=== PATIENT | male | born 1960 | race Caucasian/White ===

== ENCOUNTER 2020-12-12 10:06 | Outpatient (CLI) | payer BC, SELFPAY | END 2020-12-12 10:07 | disposition home or self-care (01) | PROVIDERS: PCP Internal Medicine; Visit Provider Internal Medicine | DX: J02.9 Acute pharyngitis, unspecified (principal) | CPT/HCPCS: 87070; 87081; 87880 ==

== ENCOUNTER → 2020-12-13 04:06 | Outpatient (CLI) | payer BC, SELFPAY ==
[2020-12-13 20:12] LABS: SARS-CoV-2 RNA PCR Negative
== END ==
PROVIDERS: PCP Internal Medicine; Visit Provider Internal Medicine
DX: J02.9 Acute pharyngitis, unspecified (principal); Z20.822 Contact with and (suspected) exposure to COVID-19
CPT/HCPCS: C9803; U0003; U0005

== ENCOUNTER → 2021-06-18 02:17 | Outpatient (CLI) | payer BC, SELFPAY ==
[2021-06-18 12:36] LABS: SARS-CoV-2 RNA PCR Negative
== END ==
PROVIDERS: PCP Internal Medicine; Visit Provider Physician Assistant
DX: R68.89 Other general symptoms and signs (principal); Z20.822 Contact with and (suspected) exposure to COVID-19
CPT/HCPCS: C9803; U0003; U0005

== ENCOUNTER 2021-07-31 01:51 | Day surgery (SDC) | payer BC, SELFPAY ==
[2021-07-21 13:31] VITALS: BMI 26.8
[2021-07-31 11:18] VITALS: BP 102/74; PULSE 63; RESP 16; TEMP 36.6; O2SAT 99
--- NOTE | 2021-07-31 11:18 | PM.HPGS ---
History of Present Illness History of Present Illness Consent: Risks, benefits, and alternatives have been discussed and questions answered. Patient agrees to proceed with procedure. Chief complaint: neoplasm screening Narrative: Peter Wan is a 60 year old male Here for colon cancer screening. He has had polyps removed in the past, most recently 5 years ago. He is due to have heart surgery with valve replacement in a month or 2. Review of Systems Review of Systems: All systems reviewed & are unremarkable except as noted in HPI and below PMFSH Past Medical History Medical History Disorder of tear duct system Hemorrhoid Surgical History Surgical History S/P correction of deviated nasal septum Family History Family History Sibling Patient's sister is in good health Patient's brother is in good health Father Patient's father is Malignant neoplasm of prostate Social History Social History Smoking status: Never smoker Alcohol intake: current Drinks per week: 4 Substance use type: does not use Living arrangements: with family Spiritual care concerns: No Meds Home Medications and Allergies Home Medications Medication Instructions Recorded Confirmed Type aspirin 81 mg tablet,delayed 81 mg PO DAILY 09/04/19 07/21/21 History release coenzyme Q10 200 mg capsule 200 mg PO DAILY 09/04/19 07/21/21 History milk thistle seed extract 140 mg 140 mg PO BID 09/04/19 07/21/21 History capsule multivitamin 1 tablet PO DAILY 09/04/19 07/21/21 History ascorbic acid (vitamin C) 500 mg 500 mg PO .2-3xw tablet 09/05/19 07/21/21 History tablet cholecalciferol (vitamin D3) 25 25 mcg PO DAILY 07/17/20 07/21/21 History mcg (1,000 unit) capsule codeine 10 mg-guaifenesin 100 mg/5 10 ml PO QHS PRN #70 ml 07/18/21 07/21/21 Rx mL oral liquid amoxicillin 875 mg-potassium 1 tablet PO BID #20 tablet 07/21/21 07/21/21 Rx clavulanate 125 mg tablet Allergies Allergy/AdvReac Type Severity Reaction Status Date / Time No Known Allergies Allergy Verified 07/31/21 11:17 Exam Resp: Auscultation: clear to auscultation bilaterally Cardio: Rate: regular rate Rhythm: regular rhythm GI: GI Palp: Yes Soft to palpation and No Tenderness to palpation present (GI) Assessment and Plan Assessment and plan (1) Colon cancer screening: Code(s): Z12.11 - Encounter for screening for malignant neoplasm of colon Status: Acute Assessment and Plan: EGD with possible biopsy or dilatation or cautery.
[2021-07-31] MEDS: LACTATED RINGERS 1,000 ML 150 ML IV CONT (11:33)
[2021-07-31] MEDS: GENTAMICIN 80MG/SOD CHL 50 ML 80 MG/50 ML BAG 100 MG IVPB (11:34)
--- NOTE | 2021-07-31 12:29 | P.PNAN_ITS ---
Anes - Initial Pre Proc Eval Procedure: Operation Date: 07/31/21 12:30 Proposed Procedures p Screening Colonoscopy - George Webber MD Date/Time: 07/31/21 12:29 Surgeon: George Webber MD Pre Op Diagnosis: neoplasm screening Patient Data Age: 60 Gender: M Height: 1.73 m Weight: 80.2 kg Last Vital Signs Temp 97.8 F 07/31/21 11:18 Pulse 63 07/31/21 11:18 Resp 16 07/31/21 11:18 BP 102/74 07/31/21 11:18 Pulse Ox 99 07/31/21 11:18 Allergies Allergy/AdvReac Type Severity Reaction Status Date / Time No Known Allergies Allergy Verified 07/31/21 11:17 Home Medications Medication Instructions Recorded Confirmed Type aspirin 81 mg tablet,delayed 81 mg PO DAILY 09/04/19 07/21/21 History release coenzyme Q10 200 mg capsule 200 mg PO DAILY 09/04/19 07/21/21 History milk thistle seed extract 140 mg 140 mg PO BID 09/04/19 07/21/21 History capsule multivitamin 1 tablet PO DAILY 09/04/19 07/21/21 History ascorbic acid (vitamin C) 500 mg 500 mg PO .2-3xw tablet 09/05/19 07/21/21 H istory tablet cholecalciferol (vitamin D3) 25 25 mcg PO DAILY 07/17/20 07/21/21 History mcg (1,000 unit) capsule codeine 10 mg-guaifenesin 100 mg/5 10 ml PO QHS PRN #70 ml 07/18/21 07/21/21 Rx mL oral liquid amoxicillin 875 mg-potassium 1 tablet PO BID #20 tablet 07/21/21 07/21/21 Rx clavulanate 125 mg tablet Patient hx anesthesia problems: none Family hx anesthesia problems: none Results Review: All pre-operative results and documents have been reviewed as part of the pre-operative evaluation. FORMERLY [facility], [facility]1983 Past Medical History Medical History Disorder of tear duct system Hemorrhoid Surgical History Surgical History S/P correction of deviated nasal septum Family History Family History Sibling Patient's sister is in good health Patient's brother is in good health Father Patient's father is Malignant neoplasm of prostate Social History Social History Smoking status: Never smoker Alcohol intake: current Drinks per week: 4 Substance use type: does not use Living arrangements: with family Spiritual care concerns: No Anes - Eval Final PreProcedure Day of Procedure 07/31/21 12:29 Patient weight: normal Heart: regular rate and rhythm and murmur Lungs: clear to auscultation Airway: Mallampati scale class III Neurological: alert and oriented Last oral intake: >/= 8 hours ASA classification: III Emergent: no Anesthetic plan: proceed Anesthesia type and monitoring: general and standard monitoring Results Review: All pre-operative results and documents have been reviewed as part of the pre-operative evaluation. Informed Consent: The patient's anesthetic plan and its attendant risks and benefits were discussed with the patient/family/POA. Questions were solicited and answers provided to the satisfaction of the patient/family/POA.
[2021-07-31 12:51] VITALS: BP 150/103; PULSE 53; RESP 17; O2SAT 97
[2021-07-31 13:01] VITALS: BP 102/68; PULSE 53; RESP 21; O2SAT 100
[2021-07-31 13:11] VITALS: BP 111/73; PULSE 58; RESP 21; O2SAT 100
== END 2021-07-31 13:24 | disposition home or self-care (01) ==
PROVIDERS: PCP Internal Medicine; Visit Provider Internal Medicine Gastroenterology
PROC: 0DJD8ZZ Inspection of Lower Intestinal Tract, Via Natural or Artificial Opening Endoscopic (ICD-10-PCS; CPT 45378; principal; 2021-07-31 12:30)
DX: Z12.11 Encounter for screening for malignant neoplasm of colon (principal); Z86.010 Personal history of colon polyps
CPT/HCPCS: 45378; J1580; J2704; J7120

== ENCOUNTER 2021-11-25 10:39 | Outpatient (CLI) | payer BC, SELFPAY ==
[2021-11-25 11:20] LABS: INR 1.2; Prothrombin Time 14.4 Seconds (11.1-14.7)
== END 2021-11-25 10:40 | disposition home or self-care (01) ==
PROVIDERS: PCP Internal Medicine; Visit Provider Internal Medicine
DX: Z79.01 Long term (current) use of anticoagulants (principal)
CPT/HCPCS: 36415; 85610

== ENCOUNTER 2021-12-11 13:00 | Emergency (ER) | payer BC, SELFPAY ==
[2021-12-11 13:24] VITALS: BP 115/64; PULSE 63; RESP 18; TEMP 36.4; O2SAT 100
--- NOTE | 2021-12-11 17:23 | ED.ALLEREA ---
HPI - Allergic Reaction General Chief complaint: Allergic Reaction Stated complaint: wasp sting 2 days ago Time Seen by Provider: 12/11/21 16:47 Source: patient Mode of arrival: ambulatory Limitations: no limitations History of Present Illness HPI narrative: This is a 61 year old male that presents to the ER for insect stings that occurred 2 days ago. Reports itching and swelling to the areas. Reports stings to his ankles and left hand. Denies fevers. Related Data Home Medications Medication Instructions Recorded Confirmed aspirin 81 mg tablet,delayed 81 mg PO DAILY 09/04/19 12/10/21 release (Adult Low Dose Aspirin) coenzyme Q10 200 mg capsule (Co 200 mg PO DAILY 09/04/19 12/10/21 Q-10) milk thistle seed extract 140 mg 140 mg PO BID 09/04/19 12/10/21 capsule multivitamin (Multiple Vitamins 1 tablet PO DAILY 09/04/19 12/10/21 tablet) ascorbic acid (vitamin C) 500 mg 500 mg PO .2-3xw 09/05/19 12/10/21 tablet cholecalciferol (vitamin D3) 25 25 mcg PO DAILY 07/17/20 12/10/21 mcg (1,000 unit) capsule biotin 10,000 mcg capsule mcg PO 08/11/21 12/10/21 tudca BYMOUTH DAILY 08/11/21 12/10/21 apixaban 5 mg tablet (Eliquis) 5 mg PO BID 12/10/21 12/10/21 Allergies Allergy/AdvReac Type Severity Reaction Status Date / Time No Known Allergies Allergy Verified 12/10/21 14:29 Review of Systems Review of Systems: CONSTITUTIONAL: Denies fever SKIN: Reports rash and itching. All systems reviewed & are unremarkable except as noted in HPI and below PMFSH Past Medical History Medical History (Updated 12/11/21 @ 17:33 by Haydee Dickson PA-C) Disorder of tear duct system Hemorrhoid History of transcatheter aortic valve replacement (TAVR) Surgical History Surgical History S/P correction of deviated nasal septum Family History Family History Sibling Patient's sister is in good health Patient's brother is in good health Father Patient's father is Malignant neoplasm of prostate Social History Social History Smoking status: Never smoker Alcohol intake: current Drinks per week: 4 Substance use type: does not use Spiritual care concerns: No Exam Narrative: GENERAL: Well-appearing, well-nourished, and in no acute distress. HEAD: Normocephalic, atraumatic. EYES: EOMI. EXTREMITIES: Normal range of motion. Mild edema with overlying redness to the left hand and bilateral ankles. No lymphangitic streaking SKIN: Warm, dry, no rash. NEURO: No focal deficits. Alert and oriented x3. PSYCH: Normal mood and affect Course Vital Signs Vital signs: Vital Signs Temperature 97.6 F 12/11/21 13:24 Pulse Rate 63 12/11/21 13:24 Respiratory Rate 18 12/11/21 13:24 Blood Pressure 115/64 12/11/21 13:24 Pulse Oximetry 100 12/11/21 13:24 Oxygen Delivery Room Air 12/11/21 13:24 Temperature 97.6 F 12/11/21 13:24 Pulse Rate 63 12/11/21 13:24 Respiratory Rate 18 12/11/21 13:24 Blood Pressure 115/64 12/11/21 13:24 Pulse Oximetry 100 12/11/21 13:24 Oxygen Delivery Room Air 12/11/21 13:24 MDM - Allergic Reaction MDM Narrative Medical decision making narrative: Patient presents to the emergency department for itching. Reports he had insect stings a couple of days prior. He has been taking Benadryl with little relief. No concerning findings on exam. Patient is afebrile and nontoxic-appearing. Instructed on use of antihistamines and will be put on steroid taper. He is to follow-up with his primary care doctor. He was given warnings to return to the Critical Care Time Critical Care Time Critical Care Time: No Discharge Plan Discharge Clinical Impression: Insect bite or sting Patient Disposition: Home, Self-Care Condition: Stable Instructions: Insect Bite or Sting (ED
[2021-12-11] MEDS: FAMOTIDINE 20 MG TABLET PO (17:44)
[2021-12-11] MEDS: LORATADINE 10 MG TABLET PO (17:44)
[2021-12-11 18:05] VITALS: BP 130/83; PULSE 97; RESP 18; O2SAT 99
== END 2021-12-11 18:07 | disposition home or self-care (01) ==
LOC: ANHED 17:40
PROVIDERS: Emergency Provider Family Medicine; PCP Internal Medicine
DX: T63.461A Toxic effect of venom of wasps, accidental (unintentional), initial encounter (principal); Z79.82 Long term (current) use of aspirin; Z79.01 Long term (current) use of anticoagulants; Z95.2 Presence of prosthetic heart valve
CPT/HCPCS: 99283; A9270

== ENCOUNTER 2022-01-27 11:06 | Outpatient (CLI) | payer BC, SELFPAY ==
[2022-01-27 12:05] LABS: Influenza Control Positive
== END 2022-01-27 11:07 | disposition home or self-care (01) ==
LOC: ANHLAB 11:08
PROVIDERS: PCP Internal Medicine; Visit Provider Internal Medicine
DX: B34.9 Viral infection, unspecified (principal)
CPT/HCPCS: 87804

== ENCOUNTER 2022-03-11 14:42 | Outpatient (CLI) | payer BC, SELFPAY ==
[2022-03-11 15:11] LABS: Basophils Percent Auto 0.4 % (0.2-1.2); Eosinophils Percent Auto 0.7 % (0-4.4); Hematocrit 41.9 % (42.0-52.0); Hemoglobin 14.4 g/dL (14.0-18.0); Immature Granulocyte Absolute 0.02 K/mm3 (0.00-0.031); Immature Granulocyte Percent A 0.4 % (0-0.5); Lymphocytes Absolute Auto 1.12 K/mm3 (0.9-3.2); Lymphocytes Percent Auto 24.6 % (18.3-44.2); Mean Corpuscular HGB Conc 34.4 g/dl (32-36); Mean Corpuscular Hemoglobin 33.6 pg (26-34); Mean Corpuscular Volume 97.9 fl (80-100); Mean Platelet Volume 9.4 fl (7.4-10.4); Monocytes Absolute Auto 0.4 K/mm3 (0.1-0.6); Monocytes Percent Auto 8.8 % (2.6-8.5); Neutrophils Percent Auto 65.1 % (45.5-73.1); Platelet Count Result 127 k/mm3 (150-375); Red Blood Count 4.28 M/mm3 (4.6-6.20); Red Cell Distribution Width 14.2 % (11.5-14.5); White Blood Count 4.6 K/mm3 (4.5-10.0)
[2022-03-11 16:41] LABS: Iron 93 ug/dL (49-181)
[2022-03-11 16:47] LABS: Alanine Aminotransferase 112 U/L (6-50); Albumin Level 4.4 g/dL (3.5-5.1); Alkaline Phosphatase 161 U/L (38-126); Anion Gap 8 mmol/L (8-16); Aspartate Amino Transferase 87 U/L (17-59); Blood Urea Nitrogen 18 mg/dL (9-20); Calcium 9.5 mg/dL (8.4-10.2); Carbon Dioxide 29 mmol/L (22-30); Chloride 101 mmol/L (98-107); Estimated Glomerular Filt Rate > 60; Glucose 100 mg/dL (65-110); Lactate Dehydrogenase 239 U/L (120-246); Potassium 4.8 mmol/L (3.4-5.0); Sodium 138 mmol/L (137-145)
[2022-03-11 16:58] LABS: Percent Iron Saturation 37 % (20-50)
[2022-03-11 18:03] LABS: Folic Acid 18.9 ng/mL (2.76->20); Vitamin B12 > 1000.0 pg/mL (239-931)
[2022-03-18 10:57] LABS: Reference Lab Test Result Negative
== END 2022-03-11 14:43 | disposition home or self-care (01) ==
LOC: ANHLAB 14:43
PROVIDERS: PCP Internal Medicine; Visit Provider Internal Medicine Hematology & Oncology
DX: D69.59 Other secondary thrombocytopenia (principal)
CPT/HCPCS: 36415; 80053; 82607; 82728; 82746; 83540; 83550; 83615; 85025; 86023

== ENCOUNTER 2022-03-14 17:35 | Emergency (ER) | payer BC, SELFPAY ==
[2022-03-14] VITALS (9 sets, daily range): BP systolic 115–140; BP diastolic 71–100; PULSE 64–74; RESP 13–20; TEMP 37.1; O2SAT 92–100
--- NOTE | ~2022-03-14 | CT_ITS ---
EXAMINATION: CTA chest PE abdomen pel DATE: 03/14/2022 18:52 INDICATION: eval for PE, abdominal pain TECHNIQUE: Computed tomography angiography (CTA) of the chest was performed with 100 mL Omnipaque-350 intravenous contrast timed to evaluate the pulmonary arteries, followed by portal venous phase imagi ng of the abdomen and pelvis. Coronal maximum intensity projection 3D-reconstructions were created by the technologist. The dose-length product (DLP) was 977.08 mGy-cm. Automated exposure control and it erative reconstruction technique were employed. COMPARISON: None. FINDINGS: CHEST: Lung parenchyma and airways: Calcified right upper lobe granuloma. Pleura: Unremarkable. Thoracic inlet, axillae and chest wall: Intact sternotomy wires. Left chest AICD. Thoracic aorta: Right-sided arch. Mild arch ectasia. Mediastinum: Dilated central pulmonary arteries, as can be seen with pulmonary arterial hypertension. Slightly patulous esophagus.. Heart and pericardium: Pulmonary valve replacement/stent. Coronary artery calcifications: Absent. Thoracic bones: No acute osseous finding. Pulmonary arteries: Study quality: Adequate. No pulmonary emboli detected. ABDOMEN/PELVIS: Liver: Normal. Biliary/Gallbladder: Cholelithiasis. No bile duct dilation. Pancreas: No mass or duct dilation. Spleen: Granulomatous calcifications. Adrenals:No mass. Kidneys: No mass, stone, or hydronephrosis. GI tract: No small or large bowel dilation. Normal appendix. Mesentery/Peritoneum: No ascites, mass, or free air. Retroperitoneum: No mass. Pelvis: Mild bladder wall thickening with mild adjacent inflammatory change. Mild prostatomegaly. Soft Tissues: Soft tissues and body wall unremarkable. Abdominopelvic bones: No acute osseous finding. IMPRESSION: No CT evidence of acute pulmonary embolus. Bladder wall thickening and inflammation which may be seco ndary to cystitis or outlet compromise. Otherwise no acute abdominopelvic process detected. Reviewed, dictated and finalized at location K. NESS PROGRAM ADMINISTRATOR IMPRESSION: No CT evidence of acute pulmonary embolus. Bladder wall thickening and inflamma tion which may be secondary to cystitis or outlet compromise. Otherwise no acut e abdominopelvic process detected.
--- NOTE | 2022-03-14 18:06 | ECG_ITS ---
Measurements Intervals [place] Rate: 72 P: -29 [place]: 135 QRS: -32 QRSD: 170 T: 76 QT: 445 QTc: 488 Interpretive Statements ELECTRONIC ATRIAL PACEMAKER WITH INHIBITION VENTRICULAR PREMATURE COMPLEX LEFT AXIS DEVIATION RIGHT BUNDLE BRANCH BLOCK BASELINE ARTIFACT- I, V4 ABNORMAL ECG NO PREVIOUS ECG AVAILABLE FOR COMPARISON Electronically Signed On 03-15-2022 7:07:57 FILEMAKER DEVELOPER by Tobi Olson D.O.
[2022-03-14 18:12] LABS: Basophils Percent Auto 0.5 % (0.2-1.2); Eosinophils Percent Auto 0.5 % (0-4.4); Hematocrit 41.8 % (42.0-52.0); Hemoglobin 14.5 g/dL (14.0-18.0); Immature Granulocyte Absolute 0.01 K/mm3 (0.00-0.031); Immature Granulocyte Percent A 0.2 % (0-0.5); Lymphocytes Absolute Auto 1.32 K/mm3 (0.9-3.2); Lymphocytes Percent Auto 30.9 % (18.3-44.2); Mean Corpuscular HGB Conc 34.7 g/dl (32-36); Mean Corpuscular Hemoglobin 32.8 pg (26-34); Mean Corpuscular Volume 94.6 fl (80-100); Mean Platelet Volume 9.3 fl (7.4-10.4); Monocytes Absolute Auto 0.5 K/mm3 (0.1-0.6); Monocytes Percent Auto 11.7 % (2.6-8.5); Neutrophils Absolute Auto 2.4 K/mm3 (1.3-6.7); Neutrophils Percent Auto 56.2 % (45.5-73.1); Platelet Count Result 119 k/mm3 (150-375); Red Blood Count 4.42 M/mm3 (4.6-6.20); Red Cell Distribution Width 13.9 % (11.5-14.5); White Blood Count 4.3 K/mm3 (4.5-10.0)
[2022-03-14 18:23] LABS: Alanine Aminotransferase 156 U/L (6-50); Albumin Level 4.4 g/dL (3.5-5.1); Alkaline Phosphatase 193 U/L (38-126); Anion Gap 10 mmol/L (8-16); Aspartate Amino Transferase 176 U/L (17-59); Bilirubin,Total 1.1 mg/dL (0.2-1.3); Blood Urea Nitrogen 11 mg/dL (9-20); Calcium 9.3 mg/dL (8.4-10.2); Carbon Dioxide 21 mmol/L (22-30); Chloride 105 mmol/L (98-107); Estimated CRCL calculation 92 ml/min; Estimated Glomerular Filt Rate > 60; Glucose 113 mg/dL (65-110); Partial Thromboplastin Time 26.3 SECONDS (22.3-36.8); Potassium 3.5 mmol/L (3.4-5.0); Prothrombin Time 12.7 Seconds (11.1-14.7); Sodium 136 mmol/L (137-145)
--- NOTE | 2022-03-14 18:25 | ED.ARRPALP ---
HPI - Arrhythmia/Palpitations General Chief Complaint: Arrhythmia/Palpitations Stated Complaint: low O2 Time Seen by Provider: 03/14/22 17:54 History of Present Illness HPI narrative: 61-year-old male presenting to the emergency department for evaluation of epigastric pain and a low pulse ox at home. Patient states he was just discharged from [facility] where he had been admitted to investigate some epigastric pain. Patient states he did have an endoscopy and an ultrasound which showed he had gallstones. After patient got home he states he had a low pulse ox and had a recurrence of his epigastric pain. Patient states he does feel improved at this point. Patient's pulse ox has been stable here. Prior to 1 month ago patient had a defibrillator placed due to an episode of V. tach that this was placed in [place]. Patient also had his valve replacement checked at mail last week. Related Data Home Medications Medication Instructions Recorded Confirmed aspirin 81 mg tablet,delayed 81 mg PO DAILY 09/04/19 02/07/22 release (Adult Low Dose Aspirin) coenzyme Q10 200 mg capsule (Co 200 mg PO DAILY 09/04/19 02/07/22 Q-10) milk thistle seed extract 140 mg 140 mg PO BID 09/04/19 02/07/22 capsule multivitamin (Multiple Vitamins 1 tablet PO DAILY 09/04/19 02/07/22 tablet) ascorbic acid (vitamin C) 500 mg 500 mg PO .2-3xw 09/05/19 02/07/22 tablet cholecalciferol (vitamin D3) 25 25 mcg PO DAILY 07/17/20 02/07/22 mcg (1,000 unit) capsule biotin 10,000 mcg capsule mcg PO 08/11/21 02/07/22 apixaban 5 mg tablet (Eliquis) 5 mg PO BID 12/10/21 02/07/22 magnesium 250 mg tablet 250 mg PO .every other day 02/04/22 02/07/22 Allergies Allergy/AdvReac Type Severity Reaction Status Date / Time No Known Allergies Allergy Verified 03/14/22 18:00 Review of Systems Review of Systems: CONSTITUTIONAL: Denies fever, chills, or sweats. EYES: Denies visual changes, redness, or discharge. ENT: Denies rhinorrhea, congestion, sore throat, or otalgia. CARDIOVASCULAR: Denies chest pain, palpitations, or edema. RESPIRATORY: Denies cough or dyspnea. GASTROINTESTINAL: Epigastric pain GENITOURINARY: Denies dysuria or hematuria. SKIN: Denies rash or itching. MUSCULOSKELETAL: Denies back pain, joint pain, or myalgia. NEUROLOGIC: Denies headache, numbness, or weakness. [facility] Past Medical History Medical History Disorder of tear duct system Hemorrhoid History of transcatheter aortic valve replacement (TAVR) Surgical History Surgical History S/P correction of deviated nasal septum Family History Family History Sibling Patient's sister is in good health Patient's brother is in good health Father Patient's father is Malignant neoplasm of prostate Social History Social History Smoking status: Never smoker Alcohol intake: current Drinks per week: 4 Substance use type: does not use Spiritual care concerns: No Exam Narrative: APPEARANCE: Well appearing, no pain, no distress, well-nourished. HEAD: normocephalic, atraumatic. EYES: PERRLA/EOMI, conjunctivae clear. NOSE: Normal no drainage NECK: Supple. No adenopathy, no masses. RESPIRATORY: Airway patent, respirations nonlabored. Clear to auscultation bilaterally, no rales, rhonchi, wheezing. CARDIOVASCULAR: Regular rate and rhythm without murmurs rubs or gallops. ABDOMINAL: Soft, minimal tenderness to palpation of the epigastric, normal bowel sounds MUSCULOSKELETAL: Moves all extremities. Strength/ROM intact, No edema, No calf tenderness. NEURO: Alert. Cranial nerves II through XII intact. Good gait. Good coordination SKIN: Warm, dry. Normal Color PSYCHIATRIC: Normal affect/mood. Course Course Emergency Course: Patient'
[2022-03-14 19:03] LABS: Troponin I < 0.012 ng/mL (0.000-0.034)
--- NOTE | 2022-03-14 19:04 | PC.NURSE ---
Assumed pt care from TAO Calvo
--- NOTE | 2022-03-14 19:13 | PC.NURSE ---
[address] [facility], [place], spoke with Donald. Faxing over report to [facility] attempting to contact local remote agent for additional help.
--- NOTE | 2022-03-14 19:23 | PC.NURSE ---
1915, Spoke with Chen. Will fax the interrogated reported.
[2022-03-14 20:16] LABS: Add Urine Microscopic? NO; Appearance Urine Clear (Clear); Bilirubin Urine Negative (Negative); Blood Urine Negative (Negative); Color Urine Yellow (Yellow); Glucose Urine UA Negative (Negative); Ketones Urine Negative (Negative); Leukocyte Esterase Ur Negative LEU/UL (Negative); Nitrate Urine Negative (Negative); Protein Urine Negative (Negative); Urobilinogen Urine 0.2 mg/dL (<2.0); pH Urine 7.5 (5.0-9.0)
== END 2022-03-14 21:24 | disposition home or self-care (01) ==
PROVIDERS: Emergency Provider Emergency Medicine; PCP Internal Medicine
DX: R10.13 Epigastric pain (principal); Z95.2 Presence of prosthetic heart valve; Z79.82 Long term (current) use of aspirin; Z79.01 Long term (current) use of anticoagulants; Z95.0 Presence of cardiac pacemaker; I49.3 Ventricular premature depolarization; I45.10 Unspecified right bundle-branch block; R93.41 Abnormal radiologic findings on diagnostic imaging of renal pelvis, ureter, or bladder
CPT/HCPCS: 36415; 71275; 74177; 80053; 81003; 84484; 85025; 85610; 85730; 93005; 99284; Q9967

== ENCOUNTER 2022-11-26 09:46 | Outpatient (CLI) | payer BC, SELFPAY ==
--- NOTE | ~2022-11-26 | CT_ITS ---
Non-contrast Head CT History: Tremor, left lower extremity numbness Technique: Axial non-contrast imaging of the brain was performed. Dose reduction technique was used on this scan by utilizing automated exposure control and iterative reconstruction technique. The dose -length product (DLP) was 605.33 mGy-cm. Findings: There is no evidence of intracranial hemorrhage, mass lesion, or acute territorial infarct . Small lacunar infarcts noted in the left basal ganglia. The ventricles and subarachnoid spaces are normal in size. The calvarium appears normal. The visualized paranasal sinuses and mastoid air azul ls are clear. Impression: Small lacunar infarcts in the left basal ganglia, age-indeterminate. Reviewed, dictated and finalized at [facility]. Impression: Small lacunar infarcts in the left basal ganglia, age-indeterminate.
== END 2022-11-26 09:47 | disposition home or self-care (01) ==
PROVIDERS: PCP Internal Medicine; Visit Provider Internal Medicine
DX: I63.89 Other cerebral infarction (principal); R20.0 Anesthesia of skin; R20.2 Paresthesia of skin; R25.1 Tremor, unspecified
CPT/HCPCS: 70450

== ENCOUNTER 2023-04-13 14:08 | Outpatient (CLI) | payer BC, SELFPAY ==
[2023-04-13 14:23] LABS: Basophils Percent Auto 0.8 % (0.2-1.2); Eosinophils Percent Auto 0.8 % (0-4.4); Hematocrit 44.5 % (42.0-52.0); Hemoglobin 15.2 g/dL (14.0-18.0); Immature Granulocyte Absolute 0.02 K/mm3 (0.00-0.031); Immature Granulocyte Percent A 0.4 % (0-0.5); Immature Platelet Fraction Pct 3.6 % (0.9-11.2); Lymphocytes Percent Auto 28.8 % (18.3-44.2); Mean Corpuscular HGB Conc 34.2 g/dl (32-36); Mean Corpuscular Hemoglobin 33.3 pg (26-34); Mean Corpuscular Volume 97.4 fl (80-100); Mean Platelet Volume 9.4 fl (7.4-10.4); Monocytes Absolute Auto 0.5 K/mm3 (0.1-0.6); Monocytes Percent Auto 9.8 % (2.6-8.5); Neutrophils Absolute Auto 3.1 K/mm3 (1.3-6.7); Neutrophils Percent Auto 59.4 % (45.5-73.1); Platelet Count Result 143 k/mm3 (150-375); Red Blood Count 4.57 M/mm3 (4.6-6.20); Red Cell Distribution Width 13.6 % (11.5-14.5); White Blood Count 5.2 K/mm3 (4.5-10.0)
[2023-04-13 16:34] LABS: CRP < 0.5 mg/dL (<1.0)
[2023-04-13 16:56] LABS: Erythrocyte Sedimentation Rate 6 mm/hr (0-20)
== END 2023-04-13 14:09 | disposition home or self-care (01) ==
LOC: ANHLAB 14:10
PROVIDERS: PCP Internal Medicine; Visit Provider Internal Medicine Hematology & Oncology
DX: D64.9 Anemia, unspecified (principal)
CPT/HCPCS: 36415; 85025; 85055; 85652; 86140

== ENCOUNTER 2023-04-27 13:03 | Outpatient (CLI) | payer BC, SELFPAY ==
--- NOTE | 2023-04-27 13:13 | ECG_ITS ---
Measurements Intervals [place] Rate: 62 P: -57 [place]: 219 QRS: -47 QRSD: 157 T: 73 QT: 428 QTc: 436 Interpretive Statements ELECTRONIC ATRIAL PACEMAKER RIGHT BUNDLE BRANCH BLOCK LEFT ANTERIOR FASCICULAR BLOCK BASELINE ARTIFACT- V3-V6 ABNORMAL ECG COMPARED TO ECG 03/14/2022 17:53:14 NO SIGNIFICANT CHANGES Electronically Signed On 04-27-2023 14:24:47 NEWS PRODUCTION ASSISTANT by Tobi Olson D.O.
== END 2023-04-27 13:04 | disposition home or self-care (01) ==
PROVIDERS: PCP Internal Medicine
DX: R00.2 Palpitations (principal); I45.10 Unspecified right bundle-branch block; I44.4 Left anterior fascicular block
CPT/HCPCS: 93005

== ENCOUNTER 2023-05-26 09:56 | Outpatient (CLI) | payer BC, SELFPAY ==
--- NOTE | ~2023-05-26 | US_ITS ---
Abdominal Sonogram: Real-time sonographic imaging of the abdomen was performed. Clinical History: Abdominal distention Findings: The liver appears normal with no evidence of mass lesion or bile duct dilatation. Main por tucker vein demonstrates normal direction of flow. The spleen is normal in size with calcified granuloma s present. The gallbladder is absent, compatible prior cholecystectomy. The common bile duct measure s 6 mm. The visualized pancreas, aorta, and IVC are unremarkable. The right kidney measures 12.6 cm in length and the left kidney measures 11.3 cm. There is no hydronephrosis or renal calculus. Impression: No significant abnormality. Status post cholecystectomy. Reviewed, dictated and finalized at location . N PICKER Impression: No significant abnormality. Status post cholecystectomy.
== END 2023-05-26 09:57 | disposition home or self-care (01) ==
LOC: ANHIMG 09:57
PROVIDERS: PCP Internal Medicine; Visit Provider Nurse Practitioner Family
DX: R14.0 Abdominal distension (gaseous) (principal); Z90.49 Acquired absence of other specified parts of digestive tract
CPT/HCPCS: 76700

== ENCOUNTER 2023-07-28 10:46 | Outpatient (CLI) | payer BC, SELFPAY ==
--- NOTE | 2023-07-28 10:56 | ECG_ITS ---
Measurements Intervals [place] Rate: 75 P: 252 [place]: 208 QRS: -6 QRSD: 153 T: 86 QT: 422 QTc: 473 Interpretive Statements ELECTRONIC ATRIAL PACEMAKER WITH OCCASIONAL PREMATURE VENTRICULAR CONTRACTIONS RIGHT BUNDLE BRANCH BLOCK ABNORMAL ECG COMPARED TO ECG 04/27/2023 13:21:49 NO SIGNIFICANT CHANGES Electronically Signed On 07-28-2023 14:48:41 CDT by Yogi Jimenez M.D.
== END 2023-07-28 10:47 | disposition home or self-care (01) ==
LOC: ANHLAB 10:48
PROVIDERS: PCP Internal Medicine; Visit Provider Internal Medicine
DX: I49.9 Cardiac arrhythmia, unspecified (principal); I45.10 Unspecified right bundle-branch block
CPT/HCPCS: 93005

== ENCOUNTER 2023-08-19 08:54 | Outpatient (CLI) | payer BC, SELFPAY ==
[2023-08-19 09:12] LABS: Basophils Percent Auto 0.5 % (0.2-1.2); Eosinophils Absolute Auto 0.1 K/mm3 (0-0.3); Eosinophils Percent Auto 1.2 % (0-4.4); Hematocrit 42.8 % (42.0-52.0); Hemoglobin 14.5 g/dL (14.0-18.0); Immature Granulocyte Absolute 0.01 K/mm3 (0.00-0.031); Immature Granulocyte Percent A 0.2 % (0-0.5); Lymphocytes Absolute Auto 1.36 K/mm3 (0.9-3.2); Lymphocytes Percent Auto 33.8 % (18.3-44.2); Mean Corpuscular HGB Conc 33.9 g/dl (32-36); Mean Corpuscular Hemoglobin 32.9 pg (26-34); Mean Corpuscular Volume 97.1 fl (80-100); Mean Platelet Volume 9.6 fl (7.4-10.4); Monocytes Absolute Auto 0.6 K/mm3 (0.1-0.6); Monocytes Percent Auto 14.4 % (2.6-8.5); Neutrophils Percent Auto 49.9 % (45.5-73.1); Platelet Count Result 99 k/mm3 (150-375); Red Blood Count 4.41 M/mm3 (4.6-6.20); Red Cell Distribution Width 13.5 % (11.5-14.5)
[2023-08-19 11:12] LABS: CRP 0.7 mg/dL (<1.0)
[2023-08-19 11:21] LABS: Erythrocyte Sedimentation Rate 14 mm/hr (0-20)
[2023-08-19 12:28] LABS: Folic Acid 10.8 ng/mL (2.76->20); Vitamin B12 > 1000.0 pg/mL (239-931)
== END 2023-08-19 08:55 | disposition home or self-care (01) ==
LOC: ANHLAB 08:56
PROVIDERS: PCP Internal Medicine; Visit Provider Internal Medicine Hematology & Oncology
DX: D64.9 Anemia, unspecified (principal)
CPT/HCPCS: 36415; 82607; 82746; 85025; 85652; 86140

== ENCOUNTER 2024-01-05 15:25 | Outpatient (CLI) | payer BC, SELFPAY ==
--- NOTE | 2024-01-05 15:46 | ECG_ITS ---
Test Date: 2024-01-05 16:02:49 Measurements Intervals [place] Rate: P: IN: QRS: QRSD: T: QT: QTc: Interpretive Statements ELECTRONIC ATRIAL PACEMAKER LEFT AXIS DEVIATION RIGHT BUNDLE BRANCH BLOCK ABNORMAL ECG Electronically Signed On 01-05-2024 16:09:58 CDT by Tobi Olson D.O.
== END 2024-01-05 15:26 | disposition home or self-care (01) ==
LOC: ANHLAB 15:27
PROVIDERS: PCP Internal Medicine; Visit Provider Internal Medicine
DX: R00.0 Tachycardia, unspecified (principal); I45.10 Unspecified right bundle-branch block
CPT/HCPCS: 93005

== ENCOUNTER 2024-05-09 11:32 | Outpatient (CLI) | payer BC, SELFPAY | END 2024-05-09 11:33 | disposition home or self-care (01) | LOC: ANHLAB 11:33 | PROVIDERS: PCP Internal Medicine; Visit Provider Internal Medicine | DX: J02.9 Acute pharyngitis, unspecified (principal) | CPT/HCPCS: 87070 ==

== ENCOUNTER 2024-06-27 09:52 | Outpatient (CLI) | payer BC, SELFPAY ==
[2024-06-27 10:07] LABS: Basophils Percent Auto 0.7 % (0.2-1.2); Eosinophils Absolute Auto 0.1 K/mm3 (0-0.3); Hematocrit 43.6 % (42.0-52.0); Immature Granulocyte Absolute 0.01 K/mm3 (0.00-0.031); Immature Granulocyte Percent A 0.2 % (0-0.5); Lymphocytes Absolute Auto 1.41 K/mm3 (0.9-3.2); Lymphocytes Percent Auto 34.5 % (18.3-44.2); Mean Corpuscular HGB Conc 34.4 g/dl (32-36); Mean Corpuscular Hemoglobin 33.3 pg (26-34); Mean Corpuscular Volume 96.7 fl (80-100); Mean Platelet Volume 9.4 fl (7.4-10.4); Monocytes Absolute Auto 0.6 K/mm3 (0.1-0.6); Monocytes Percent Auto 14.4 % (2.6-8.5); Neutrophils Percent Auto 48.2 % (45.5-73.1); Platelet Count Result 119 k/mm3 (150-375); Red Blood Count 4.51 M/mm3 (4.6-6.20); White Blood Count 4.1 K/mm3 (4.5-10.0)
[2024-06-27 12:13] LABS: Alanine Aminotransferase 51 U/L (6-50); Albumin Level 4.2 g/dL (3.5-5.1); Alkaline Phosphatase 123 U/L (38-126); Anion Gap 7 mmol/L (4-12); Aspartate Amino Transferase 45 U/L (17-59); Bilirubin,Total 1.2 mg/dL (0.2-1.3); Blood Urea Nitrogen 15 mg/dL (9-20); Calcium 9.5 mg/dL (8.4-10.2); Carbon Dioxide 27 mmol/L (22-30); Chloride 102 mmol/L (98-107); Estimated Glomerular Filt Rate > 60; Glucose 89 mg/dL (65-110); Potassium 5.7 mmol/L (3.4-5.0); Sodium 136 mmol/L (137-145)
== END 2024-06-27 09:53 | disposition home or self-care (01) ==
LOC: ANHLAB 09:53
PROVIDERS: PCP Internal Medicine; Visit Provider Internal Medicine Hematology & Oncology
DX: D64.9 Anemia, unspecified (principal)
CPT/HCPCS: 36415; 80053; 85025

== ENCOUNTER 2024-08-10 13:54 | Outpatient (CLI) | payer BC, SELFPAY ==
--- NOTE | ~2024-08-10 | US_ITS ---
EXAMINATION:US venous doppler LE BI INDICATION:Localized edema TECHNIQUE: Multiple grayscale, color flow and Doppler images of the right and left lower extremity de ep venous systems were obtained and reviewed. COMPARISON:No prior studies for comparison. FINDINGS: The common femoral, superficial femoral and popliteal veins demonstrate normal respiratory variation, augmentation and compressibility. Color flow is also seen within the posterior tibial, pe roneal, greater saphenous and profunda veins. IMPRESSION: 1: No lower extremity deep venous thrombosis. Reviewed, dictated and finalized at location B.
== END 2024-08-10 13:55 | disposition home or self-care (01) ==
LOC: MICIMG 13:54
PROVIDERS: PCP Internal Medicine; Visit Provider Internal Medicine
DX: R60.0 Localized edema (principal)
CPT/HCPCS: 93970